=== PATIENT | female | born 1955 | race Caucasian/White ===

== ENCOUNTER 2025-02-18 11:16 | Outpatient (CLI) | payer MEDICARE, MEDICAID ==
[~2025-02-18 11:16] MED LIST: AMLO10TA PO; ATI1T PO; ATOR10TA70 PO; CHOL500050 PO; FLUO-10 PO; HYDR-3717 PO; LANS15CA18 PO; LEVO100T9 PO; LUMA42CA PO; NITR50CA PO; OXYC1TAB17 PO; PROC10TA97 PO; PROP20TA6 PO; TEMA15CA PO
--- NOTE | 2025-02-19 11:14 | RADIOLOGY REPORT ---
CLINICAL INFORMATION: PAIN IN RIGHT SHOULDER. TECHNIQUE: Multisequence multiplanar MRI images of the right shoulder were obtained without contrast . COMPARISON: None FINDINGS: Acromioclavicular joint: There is mrxz-hu-[id number] acromioclavicular hypertrophy and plfp-[id number] edema. There is type 1 acromion. Small amount of fluid in the subacromial / subdeltoid bursa. Rotator cuff tendons: [id number] tendinosis of the distal supraspinatus and infraspinatus tendo ns. Small partial-thickness interstitial tear of the infraspinatus tendon insertional footprint measu res up to 0.5 cm in AP dimension and 0.5 cm in transverse dimension, involving less than 50% of the t endon thickness. There is also mild articular surface fraying involving the posterior fibers of the supraspinatus tendon and anterior fibers of the infraspinatus tendon just proximal to the insertion. [id number] tendinosis of the distal subscapularis tendon with mild articular surface fraying ju st proximal to the insertion. Teres minor tendon is intact. Biceps tendon: No significant tendinosis. No evidence of attrition or tear. Labrum: No labral tear identified. Bones: No fracture or focal marrow contusion. Moderate arthritic changes of the glenohumeral joint wi th joint space narrowing, mild subchondral cystic change, and small marginal osteophytes. Muscles: Normal muscle bulk. No atrophy. Other: Motion artifact limits evaluation. IMPRESSION: 1. Motion limited study. 2. Rotator cuff tendinosis with small partial-thickness interstitial tear of the infraspinatus insert ion and mild articular surface fraying proximal to the supraspinatus, infraspinatus, and subscapulari s insertions. 3. Ifla-ji-wyqxchvy acromioclavicular hypertrophy with mild subacromial / subdeltoid bursitis. 4. Moderate arthritic changes of the glenohumeral joint.
== END 2025-02-18 23:59 | disposition home or self-care (01) ==
LOC: MRI02 11:16
PROVIDERS: ATTEND Family Medicine Sports Medicine
DX: S46.011D Strain of muscle(s) and tendon(s) of the rotator cuff of right shoulder, subsequent encounter (principal); M19.011 Primary osteoarthritis, right shoulder; M75.81 Other shoulder lesions, right shoulder; M25.511 Pain in right shoulder; M77.9 Enthesopathy, unspecified; R60.0 Localized edema; X58.XXXD Exposure to other specified factors, subsequent encounter
CPT/HCPCS: 73221